=== PATIENT | female | born 1940 | race Caucasian/White ===

== ENCOUNTER 2019-11-06 13:50 | Outpatient (CLI) | payer MEDICARE, SELFPAY ==
--- NOTE | 2019-11-06 14:15 | USCV_ITS ---
Mayela Cavazos Age: 79 Gender: F : 1940 Exam Date: 11/06/2019 14:18 Ordering Phys: Arnaud Gandara MD ([email or web address]) Technologist: Loida Cat Exam Location: [facility] – [place] Indication: CAROTID ARTERY STENOSIS Risk Factors: Previous Vascular Surgery: Right Brachial BP: / Left Brachial BP: / Right Left Velocity (cm/s) Spectral Plaque Velocity (cm/s) Spectral Plaque Syst/Diast Broadening Syst/Diast Broadening 88.20/ 11.00 Prox CCA 126.20/ 17.10 119.10/12.10 Mid CCA 73.00 / 11.70 110.10/11.10 Distal CCA 90.90 / 15.50 80.30/ 11.10 Prox ICA 99.20 / 19.80 91.40/ 17.10 Mid ICA 131.70/ 30.00 106.00/17.90 Distal ICA 130.55/ 11.25 177.10 ECA 138.00 0.89 ICA/CCA 1.99 Antegrade Vertebral Antegrade 69.20/ 8.10 cm/s 49.10/ 9.60 cm/s Bi Subclavian Bi 119.6 145.5 0 0 FINDINGS Comparison:. 06/23/16 Diffuse bilateral scattered calcified plaque through the bifurcations. Minimal elevation of velocity distal left ICA. Bilateral antegrade vertebral arteries. CONCLUSIONS Bilateral ICA stenosis less than 50%. No interval change in stenosis since prior exam. Dr. Karen Vasquez DO (Electronically Signed) Final Date: 06 November 2019 16:17 S
== END 2019-11-06 13:51 | disposition home or self-care (01) ==
PROVIDERS: Family Provider Family Medicine; PCP Family Medicine; Visit Provider Internal Medicine Cardiovascular Disease
DX: I65.23 Occlusion and stenosis of bilateral carotid arteries (principal)
CPT/HCPCS: 93880

== ENCOUNTER 2019-11-12 11:22 | Outpatient (CLI) | payer MEDICARE, SELFPAY ==
--- NOTE | 2019-11-29 12:57 | ONC FU_ITS ---
Dr. Bell Patient Follow-Up Note Patient: Mayela Cavazos Unit #: [id number]: 1940 Dicatated By: Chacho Bell M.D.Date of Visit:Nov 12, 2019 Onc Med Follow-up/Prog Note Chief Complaint: Breast cancer. History of Present Illness: This is an 79 year-old woman with invasive ductal carcinoma of the right breast, stage IA (T1a, N0, M0), ER/ND positive and HER-2/christina unknown. She has previously been treated for intraductal cancer of the right breast. She had completed 5 years of adjuvant tamoxifen. Shortly thereafter her surveillance mammogram had reported suspicious findings in the upper outer quadrant of the right breast. Ultrasound directed biopsy showed invasive ductal carcinoma measuring at least 0.2 cm. The grade was not able to be assessed. 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 On 10/17/2017 she underwent right modified radical mastectomy. Pathology on the mastectomy showed no residual invasive or in situ cancer. There was no involvement in 5 axillary lymph nodes. The breast prognostic profile on the biopsy showed ER positive at 99% and ND positive at 87%. The HER-2/christina expression was indeterminate due to small sample size and distortion of tumor by cautery. She had originally presented in 2011 with an abnormal screening mammogram which showed just a small group of suspicious-appearing calcifications in the right breast. The involved area measured only 4 mm. 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 There also was evidence of lobular carcinoma in situ. There was no invasive cancer. The tumor was ER positive at 97% and ND-positive at 91%. She underwent lumpectomy under needle localization on 06/29/2012. Pathology on the lumpectomy specimen showed focal lobular carcinoma in situ, but no residual ductal carcinoma in situ and no invasive cancer. We had a complete discussion regarding treatment options, and she also did have consultation with the radiation oncologist. She opted to otherwise limit her treatment to adjuvant hormonal therapy with tamoxifen. Her other medical illnesses include hypertension, osteoporosis, and degenerative arthritis. She also has a history of atrial fibrillation. She has had a previous hysterectomy/BSO. She is on anticoagulation with apixaban. She underwent right total knee arthroplasty in 2015. During subsequent followup she was found to have iron deficiency anemia, but it did correct with oral iron supplementation. INTERIM HISTORY: I had seen her for a follow-up visit in November 2017. At that time she agreed to a trial of adjuvant hormonal therapy with anastrozole 1 mg daily. Her DEXA scan in 2016 showed T score -0.7 in the lumbar spine and 0.1 in the left total hip. As of her follow-up visit on 05/08/2018 she had developed significant musculoskeletal pain and other side effects with the anastrozole, including hot flashes and weight gain. As she appeared to have very low risk of recurrence with her breast cancer, I did recommend that she stop treatment. She has since then been followed on observation/expectant management. She is seen for a follow-up visit. She has been feeling good generally. Her main complaint is that she has this muscle thing in her right leg. It is pain that starts in her hip area and also involves her thigh. It tends to be worse when she first gets up, particularly when she has been sitting for a longer period of time. It mostly feels like a muscle cramp or a knot, and at times the pain is pretty severe. She has good energy and activity tolerance. ECOG score is 0. Her appetite is good. She has no fever, night sweats, or hot flashes. She has occasional cough. She does not complain of shortness of breath or chest pain. She reports having a lot of gas, and she says her stomach rolls. She manages constipation with Chayo lax. She has urinary frequency, and she has some urgency and slight incontinence. She had seen Dr. Moralez when it was discovered that there was blood in her urine. Her evaluation with CT and cystoscopy was apparently unrevealing. She does not complain of headache. She has occasional episodes of dizziness/vertigo. She has neuropathy in her feet. Medications: Acetaminophen PM 1 (500-25 mg) Tablet Oral at bedtime PRN, Benadryl Allergy 2 (25 mg) Tablet Oral at bedtime, Cardizem 1 (240 mg) Tablet Oral daily, Eliquis 1 (5 mg) Tablet Oral b.i.d., Lisinopril 1 (10 mg) Tablet Oral b.i.d., Metoprolol Tartrate 1 (100 mg) Tablet Oral b.i.d., MiraLax 1 Pack Oral daily, ZyrTEC Allergy 2 (10 mg) Tablet Oral every am Allergies: Bactrim DS, Demerol, and Tolectin. Review of Systems: Constitutional - Her energy is good. She has normal activity. Appetite is good and weight is stable. No fever, night sweats, or hot flashes. ECOG score is 0, ENMT - No sinus congestion/drainage. No mouth sores. No sore throat or difficulty swallowing, Hematologic/Lymphatic - No abnormal bruising or bleeding, Respiratory - No shortness of breath. She has occasional cough. No pleuritic pain or hemoptysis, Cardiovascular - No angina pain. No palpitations, Gastrointestinal - No nausea or vomiting. No heartburn or acid reflux. She complains that her stomach rolls, and that she has a lot of gas. She manages constipation with Miralax. No blood in the stool or black stools, Genitourinary (F) - No dysuria or hematuria. She has urinary frequency and some urgency. She also has some slight incontinence, Musculoskeletal - She has pain and muscle cramping in her right hip and thigh. It is worse when she first gets up from sitting. She also reports having some stiffness in her neck, Integumentary - She had an itching eruption on her upper body. It has improved significantly. She still occasionally has an outbreak on her neck or in the edge of her hairline, Neurologic - She has headaches at times. She has occasional episodes of dizziness which she manages with meclizine. She has neuropathy in her feet, Psychiatric - She has some anxiety. No depression. She sometimes has difficulty sleeping. Vital Signs: Performed on Nov 12, 2019 12:14 Height - 66.00 in Weight - 167 lbs (HIGH) BSA - 1.85 sq.m BMI - 26.95 Temperature - 97.0 F (LOW) Pulse - 56 /min (LOW) Respiration - 15 /min BP - 150/80 mm(hg) (HIGH) O2 Sat - 94 % (LOW) Pain - 0 Physical Examination: Constitutional - She looks good generally, Eyes - Sclerae nonicteric. Conjunctivae clear, ENMT - No lesions noted in the oral cavity, Hematologic/Lymphatic - No cervical or clavicular adenopathy, Respiratory - Lungs are clear with good air movement bilaterally, Cardiovascular - Heart rhythm is regular. There is no murmur, gallop, or rub noted, Breasts - The right chest wall appears shows no lesions. The left breast shows no mass. There is no axillary adenopathy, Abdomen - Soft. Liver and spleen are not enlarged. There is no abdominal mass or ascites noted and there is no inguinal adenopathy, Extremities - No edema. Dorsalis pedisl pulses are palpable bilaterally, Neurologic - No focal neurologic deficits noted. Lab/Imaging: Test performed on Nov 12, 2019 10:33 Glucose 101 mg/dL BUN 21 mg/dL Creatinine 0.80 mg/dL Cr Clearance (Est) 65.9500 mL/min Sodium 138 mmol/L Potassium 4.2 mmol/L Chloride 100 mmol/L CO2 28 mmol/L Calcium 9.5 mg/dL Protein, Total 7.2 g/dL Albumin 4.4 g/dL Bilirubin, Total 0.3 mg/dL Alkaline Phosphatase 97 IU/L AST (SGOT) 15 IU/L ALT (SGPT) 10 IU/L WBC 6.6 10^9/L RBC 4.44 10^12/L HGB 12.7 g/dL HCT 40.6 % MCV 91.4 fl MCH 28.6 pg MCHC 31.3 g/dL RDW 14.1 % Platelet Count 226 10^9/L MPV 10.9 fL Neutrophils (Gran) 3.97 10^9/L Lymphocytes 1.86 10^9/L Monocytes 0.54 10^9/L Eosinophils 0.22 10^9/L Basophils 0.03 10^9/L Manual Lymphocytes 28 % Manual Monocytes 8 % Manual Eosinophils 3 % Manual Basophils 1 % Impression: 1. Patient with invasive ductal carcinoma of the right breast, stage IA (T1a, N0, M0), ER/ND positive and HER-2/christina unknown. 2. She underwent right modified radical mastectomy on 10/17/2017 with no residual carcinoma identified in the mastectomy specimen. 3. 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 Her treatment was limited to lumpectomy in June 2012 followed by adjuvant hormonal therapy with tamoxifen, which she started in September 2012. Her other medical illnesses include: 3. Hypertension. 4. Osteoporosis 5. Degenerative arthritis. 6. She also has a history of atrial fibrillation, and she is on chronic anticoagulation with apixaban. 7. She developed iron deficiency anemia following revision of the total knee arthroplasty. In November 2017 she began a trial of adjuvant hormonal therapy with anastrozole 1 mg daily. As of her follow-up visit in April 2018 the anastrozole was put on hold due to multiple side effects including joint pain, weight gain, and hot flashes. As the risk for any further recurrence of breast cancer is low, I did not attempt any further treatment. She felt much better after stopping the anastrozole. Recently she has been having pain in her right hip/thigh, which is worse with activity, particularly when she first gets up after sitting. This would appear to be most likely from arthritis in the right hip joint. Overall, though, she is still doing well clinically with no obvious recurrence of the breast cancer. Plan: She remains on observation/expectant management for the breast cancer. She is planning to have her right hip evaluated when she goes in for her scheduled orthopedic follow-up in December. I will see her again in 6 months, or sooner as needed. Signed By: Chacho Bell M.D. <<Signature on File>>
== END 2019-11-12 11:23 | disposition home or self-care (01) ==
LOC: STFRANCIS 11-13 14:26
PROVIDERS: Family Provider Family Medicine; PCP Family Medicine; Visit Provider Internal Medicine Medical Oncology
DX: Z08 Encounter for follow-up examination after completed treatment for malignant neoplasm (principal); Z85.3 Personal history of malignant neoplasm of breast; Z90.11 Acquired absence of right breast and nipple; I10 Essential (primary) hypertension; M81.0 Age-related osteoporosis without current pathological fracture; M19.90 Unspecified osteoarthritis, unspecified site; I48.91 Unspecified atrial fibrillation; Z79.01 Long term (current) use of anticoagulants; Z96.651 Presence of right artificial knee joint; Z92.23 Personal history of estrogen therapy
CPT/HCPCS: G0463

== ENCOUNTER 2020-06-09 10:31 | Outpatient (CLI) | payer MEDICARE, SELFPAY ==
--- NOTE | 2020-06-15 16:10 | ONC FU_ITS ---
Dr. Bell Patient Follow-Up Note Patient: Mayela Cavazos Unit #: [id number]: 1940 Dicatated By: Chacho Bell M.D.Date of Visit:Jun 09, 2020 Onc Med Follow-up/Prog Note Chief Complaint: Breast cancer. History of Present Illness: This is an 80 year-old woman with invasive ductal carcinoma of the right breast, stage IA (T1a, N0, M0), ER/MD positive and HER-2/christina unknown. She has previously been treated for intraductal cancer of the right breast. She had completed 5 years of adjuvant tamoxifen. Shortly thereafter her surveillance mammogram had reported suspicious findings in the upper outer quadrant of the right breast. Ultrasound directed biopsy showed invasive ductal carcinoma measuring at least 0.2 cm. The grade was not able to be assessed. 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 On 10/17/2017 she underwent right modified radical mastectomy. Pathology on the mastectomy showed no residual invasive or in situ cancer. There was no involvement in 5 axillary lymph nodes. The breast prognostic profile on the biopsy showed ER positive at 99% and MD positive at 87%. The HER-2/christina expression was indeterminate due to small sample size and distortion of tumor by cautery. She had originally presented in 2011 with an abnormal screening mammogram which showed just a small group of suspicious-appearing calcifications in the right breast. The involved area measured only 4 mm. 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 There also was evidence of lobular carcinoma in situ. There was no invasive cancer. The tumor was ER positive at 97% and MD-positive at 91%. She underwent lumpectomy under needle localization on 06/29/2012. Pathology on the lumpectomy specimen showed focal lobular carcinoma in situ, but no residual ductal carcinoma in situ and no invasive cancer. We had a complete discussion regarding treatment options, and she also did have consultation with the radiation oncologist. She opted to otherwise limit her treatment to adjuvant hormonal therapy with tamoxifen. Her other medical illnesses include hypertension, osteoporosis, and degenerative arthritis. She also has a history of atrial fibrillation. She has had a previous hysterectomy/BSO. She is on anticoagulation with apixaban. She underwent right total knee arthroplasty in 2015. During subsequent followup she was found to have iron deficiency anemia, but it did correct with oral iron supplementation. INTERIM HISTORY: I had seen her for a follow-up visit in November 2017. At that time she agreed to a trial of adjuvant hormonal therapy with anastrozole 1 mg daily. Her DEXA scan in 2016 showed T score -0.7 in the lumbar spine and 0.1 in the left total hip. As of her follow-up visit on 05/08/2018 she had developed significant musculoskeletal pain and other side effects with the anastrozole, including hot flashes and weight gain. As she appeared to have very low risk of recurrence with her breast cancer, I did recommend that she stop treatment. She has since then been followed on observation/expectant management. She is seen for a follow-up visit. She has been feeling pretty good generally. Her main complaint is that she has been having trouble with her blood pressure and with irregular heart rate, but that eventually leveled out with medication changes. She says it has been good for the past couple of months. She remains on anticoagulation with apixaban. Her energy is not too bad. She has normal activity. ECOG score is 0. She has good appetite. She has not had fever. She still has some hot flashes and sweating. She had sore throat and cough last month, lasting for about 10 days, but that has all resolved now. She does not complain of shortness of breath. She has not been having chest pain. She has no GI/ complaints other than her bowels tend to act up with diarrhea off and on. She still has a little joint pain, especially in her neck, but she says her joints are not too bad now. She does not complain of headache. She has very occasional dizziness. She occasionally has a little bit of numbness/tingling. Medications: Acetaminophen PM 1 (500-25 mg) Tablet Oral at bedtime PRN, Benadryl Allergy 2 (25 mg) Tablet Oral at bedtime, Cardizem 1 (240 mg) Tablet Oral daily, Eliquis 1 (5 mg) Tablet Oral b.i.d., [id number] Ac-Ca Fructo 1 Tablet Oral daily, Losartan Potassium 1 (25 mg) Tablet Oral b.i.d., Magnesium Oxide (400 mg) Capsule Oral daily, Metoprolol Tartrate 1 (100 mg) Tablet Oral b.i.d., MiraLax 1 Pack Oral daily, ZyrTEC Allergy 2 (10 mg) Tablet Oral every am Allergies: Bactrim DS, Demerol, and Tolectin. Review of Systems: Constitutional - Her energy is pretty good. She is able to do light house work. Her appetite is good and weight down a few pounds. No fever, night sweats, or hot flashes. ECOG score is 1, ENMT - She has seasonal allergies. No mouth sores. No sore throat or difficulty swallowing, Hematologic/Lymphatic - No abnormal bruising or bleeding, Respiratory - No shortness of breath. No cough. No pleuritic pain or hemoptysis, Cardiovascular - No angina pain. She was having issues with blood pressure and she was having palpitations associated with her atrial fibrillation, but it has leveled out with adjustments in her medications, Gastrointestinal - No nausea or vomiting. No heartburn or acid reflux. She has been having intermittent episodes of diarrhea. No constipation. No blood in the stool or black stools, Genitourinary (F) - No dysuria or hematuria. No urinary frequency. No urgency or incontinence, Musculoskeletal - She has some stiffness in her joints, especially her neck, Integumentary - No skin complications, Neurologic - No headache. She has occasional episodes dizziness, which she manages with meclizine. She has neuropathy in her feet. No other focal neurologic symptoms, Psychiatric - No anxiety or depression. No insomnia. Vital Signs: Performed on Jun 09, 2020 10:00 Height - 66.00 in Weight - 164.8 lbs (LOW) BSA - 1.84 sq.m BMI - 26.60 Temperature - 97.1 F (LOW) Pulse - 54 /min (LOW) Respiration - 18 /min BP - 142/78 mm(hg) (HIGH) O2 Sat - 99 % Pain - 0 Physical Examination: Constitutional - She looks good generally, Eyes - Sclerae nonicteric. Conjunctivae clear, ENMT - No lesions noted in the oral cavity, Hematologic/Lymphatic - No cervical or clavicular adenopathy, Respiratory - Lungs are clear with good air movement bilaterally, Cardiovascular - Heart rhythm is regular. There is no murmur, gallop, or rub noted, Breasts - There are no lesions noted in the right chest wall. There is no axillary adenopathy, Abdomen - Soft. Liver and spleen are not enlarged. There is no abdominal mass or ascites noted and there is no inguinal adenopathy, Extremities - No edema. Dorsalis pedisl pulses are palpable bilaterally, Neurologic - No focal neurologic deficits noted. Impression: 1. Patient with invasive ductal carcinoma of the right breast, stage IA (T1a, N0, M0), ER/MD positive and HER-2/christina unknown. 2. She underwent right modified radical mastectomy on 10/17/2017 with no residual carcinoma identified in the mastectomy specimen. 3. 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 Her treatment was limited to lumpectomy in June 2012 followed by adjuvant hormonal therapy with tamoxifen, which she started in September 2012. Her other medical illnesses include: 3. Hypertension. 4. Osteoporosis 5. Degenerative arthritis. 6. She also has a history of atrial fibrillation, and she is on chronic anticoagulation with apixaban. 7. She developed iron deficiency anemia following revision of the total knee arthroplasty. In November 2017 she began a trial of adjuvant hormonal therapy with anastrozole 1 mg daily. As of her follow-up visit in April 2018 the anastrozole was put on hold due to multiple side effects including joint pain, weight gain, and hot flashes. She felt much better after stopping the anastrozole. As the risk for any further recurrence of breast cancer was low, I did not attempt any further treatment. During follow-up she has been doing well clinically. Thus far there has been no evidence of recurrence of the breast cancer. Plan: She remains on observation/expectant management for the breast cancer. I will see her again in 6 months. Signed By: Chacho Bell M.D. <<Signature on File>>
== END 2020-06-09 10:32 | disposition home or self-care (01) ==
LOC: ONCMED 10:31
PROVIDERS: PCP Family Medicine; Visit Provider Internal Medicine Medical Oncology
DX: Z08 Encounter for follow-up examination after completed treatment for malignant neoplasm (principal); Z85.3 Personal history of malignant neoplasm of breast; D50.9 Iron deficiency anemia, unspecified; I10 Essential (primary) hypertension; M81.0 Age-related osteoporosis without current pathological fracture; M19.90 Unspecified osteoarthritis, unspecified site; I48.91 Unspecified atrial fibrillation; Z79.01 Long term (current) use of anticoagulants
CPT/HCPCS: 99213; G0463

== ENCOUNTER → 2020-08-24 10:24 | Outpatient (BNVA) | payer MEDICARE, SELFPAY | PROVIDERS: PCP Family Medicine; Visit Provider Urology | DX: R31.29 Other microscopic hematuria (principal); N39.0 Urinary tract infection, site not specified | CPT/HCPCS: 81003 ==

== ENCOUNTER → 2020-12-03 08:53 | Outpatient (BNVA) | payer MEDICARE, SELFPAY | PROVIDERS: PCP Family Medicine; Visit Provider Urology | DX: N39.0 Urinary tract infection, site not specified (principal); R31.29 Other microscopic hematuria | CPT/HCPCS: 81003 ==

== ENCOUNTER → 2021-01-07 16:24 | Outpatient (BNVA) | payer MEDICARE, SELFPAY | PROVIDERS: PCP Family Medicine; Visit Provider Nurse Practitioner Family | DX: N39.0 Urinary tract infection, site not specified (principal) | CPT/HCPCS: 81003; 87086 ==

== ENCOUNTER 2021-02-02 10:58 | Outpatient (CLI) | payer MEDICARE, SELFPAY ==
--- NOTE | 2021-02-02 14:16 | ONC FU_ITS ---
Dr. Bell Patient Follow-Up Note Patient: Mayela Cavazos Unit #: [id number]: 1940 Dicatated By: Chacho Bell M.D.Date of Visit:Feb 02, 2021 Onc Med Follow-up/Prog Note Chief Complaint: Breast cancer. History of Present Illness: This is an 80 year-old woman with invasive ductal carcinoma of the right breast, stage IA (T1a, N0, M0), ER/FL positive and HER-2/christina unknown. She had a prior history of intraductal cancer of the right breast, presenting in 2011 with an abnormal screening mammogram. Fingings included a small group of suspicious-appearing calcifications in the right breast measuring only 4 mm. 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 There also was evidence of lobular carcinoma in situ. There was no invasive cancer. The tumor was ER positive at 97% and FL-positive at 91%. She underwent lumpectomy under needle localization on 06/29/2012. Pathology on the lumpectomy specimen showed focal lobular carcinoma in situ, but no residual ductal carcinoma in situ and no invasive cancer. We had a complete discussion regarding treatment options, and she also had consultation with the radiation oncologist. She opted to otherwise limit her further treatment to adjuvant hormonal therapy with tamoxifen. Shortly after completing the 5 years of tamoxifen her surveillance mammogram had reported suspicious findings in the upper outer quadrant of the right breast. Ultrasound directed biopsy showed invasive ductal carcinoma measuring at least 0.2 cm. The grade was not able to be assessed. 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 On 10/17/2017 she underwent right modified radical mastectomy. Pathology on the mastectomy showed no residual invasive or in situ cancer. There was no involvement in 5 axillary lymph nodes. The breast prognostic profile on the biopsy showed ER positive at 99% and FL positive at 87%. The HER-2/christina expression was indeterminate due to small sample size and distortion of tumor by cautery. I had seen her for a follow-up visit in November 2017. At that time she agreed to a trial of adjuvant hormonal therapy with anastrozole 1 mg daily. Her DEXA scan in 2016 showed T score -0.7 in the lumbar spine and 0.1 in the left total hip. As of her follow-up visit on 05/08/2018 she had developed significant musculoskeletal pain and other side effects with the anastrozole, including hot flashes and weight gain. As she appeared to have very low risk of recurrence with her breast cancer, I did recommend that she stop treatment. She was then followed on observation/expectant management. Her other medical illnesses include hypertension, osteoporosis, and degenerative arthritis. She also has a history of atrial fibrillation. She has had a previous hysterectomy/BSO. She is on anticoagulation with apixaban. She underwent right total knee arthroplasty in 2015. During subsequent followup she was found to have iron deficiency anemia, but it did correct with oral iron supplementation. INTERIM HISTORY: She is seen for a follow-up visit. She has been feeling pretty good generally. Approximately a month ago she was seen in the emergency room for chest pain. Her cardiac evaluation apparently was unrevealing. There was a spot noted on her chest x-ray, and she is now scheduled to have further evaluation with a chest CT. Following that visit her metoprolol dosage was increased, and she has had no further chest pain. She says her energy has been a little low, she has tended to tire more easily. She still has normal activity, though. Her ECOG score is 0. She has good appetite. She has not had fever or night sweats. She has just occasional hot flashes. She does not complain of shortness of breath or cough. She recently had some nausea, lasting just 1 day. Bowel function remains adequate with MiraLAX. She has ongoing problems with her bladder function and recurrent/chronic urinary tract infection. She is seeing Dr. Moralez. She has pain in her knees and legs and she complains her leg muscles are sore. She does not complain of headache. She sometimes has dizziness. She sometimes has numbness/tingling in her feet. Medications: Acetaminophen PM 1 (500-25 mg) Tablet Oral at bedtime PRN, Benadryl Allergy 2 (25 mg) Tablet Oral at bedtime, Cardizem 1 (240 mg) Tablet Oral daily, Eliquis 1 (5 mg) Tablet Oral b.i.d., Zuueot-Hyvgi-Elzk Ac-Ca Fructo 1 Tablet Oral daily, Losartan Potassium 1 (25 mg) Tablet Oral b.i.d., Magnesium Oxide (400 mg) Capsule Oral daily, Metoprolol Tartrate (50 mg) Tablet Oral Take as Directed, MiraLax 1 Pack Oral daily, ZyrTEC Allergy 2 (10 mg) Tablet Oral every am Allergies: Bactrim DS, Demerol, and Tolectin. Vital Signs: Performed on Feb 02, 2021 11:03 Height - 66.00 in Weight - 164 lbs (LOW) BSA - 1.84 sq.m BMI - 26.47 Temperature - 97.8 F (LOW) Pulse - 89 /min Respiration - 17 /min BP - 146/72 mm(hg) (HIGH) O2 Sat - 99 % Pain - 0 Physical Examination: Constitutional - She looks good generally, Eyes - Sclerae nonicteric. Conjunctivae clear, ENMT - No lesions noted in the oral cavity, Hematologic/Lymphatic - No cervical or clavicular adenopathy, Respiratory - Lungs are clear with good air movement bilaterally, Cardiovascular - Heart rhythm is regular. There is no murmur, gallop, or rub noted, Breasts - There are no lesions noted in the right chest wall. There is no axillary adenopathy, Abdomen - Soft. Liver and spleen are not enlarged. There is no abdominal mass or ascites noted and there is no inguinal adenopathy, Extremities - No edema. Dorsalis pedisl pulses are palpable bilaterally, Neurologic - No focal neurologic deficits noted. Problem List: 1. Patient with invasive ductal carcinoma of the right breast, stage IA (T1a, N0, M0), ER/FL positive and HER-2/christina unknown. She underwent right modified radical mastectomy on 10/17/2017 with no residual carcinoma identified in the mastectomy specimen. 2. 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 Her treatment was limited to lumpectomy in June 2012 followed by 5 years of adjuvant hormonal therapy with tamoxifen, which she had started in September 2012. 3. Hypertension. 4. Osteoporosis 5. Degenerative arthritis. 6. She also has a history of atrial fibrillation, for which she has been on chronic anticoagulation with apixaban. 7. She developed iron deficiency anemia following revision of the total knee arthroplasty. Problems Addressed with this Encounter and Plan: 1. Patient with invasive ductal carcinoma of the right breast, stage IA (T1a, N0, M0), ER/FL positive and HER-2/christina unknown. She underwent right modified radical mastectomy on 10/17/2017 with no residual carcinoma identified in the mastectomy specimen. In November 2017 she began a trial of adjuvant hormonal therapy with anastrozole 1 mg daily. As of her follow-up visit in April 2018 the anastrozole was put on hold due to multiple side effects including joint pain, weight gain, and hot flashes. She felt much better after stopping the anastrozole. As the risk for any further recurrence of breast cancer was low, I did not attempt any further treatment. During follow-up she has been doing well clinically. Thus far there has been no evidence of recurrence of the breast cancer. She remains on expectant management. I will see her again in 6 months. Her surveillance mammogram will be due again in August, and I will go ahead and get that scheduled. 2. She recently was noted to have abnormal chest x-ray. She is scheduled to have a chest CT. She will have further evaluation as indicated. Signed By: Chacho Bell M.D. <<Signature on File>>
== END 2021-02-02 10:59 | disposition home or self-care (01) ==
LOC: ONCMED 10:59
PROVIDERS: PCP Family Medicine; Visit Provider Internal Medicine Medical Oncology
DX: C50.811 Malignant neoplasm of overlapping sites of right female breast (principal); Z17.0 Estrogen receptor positive status [ER+]; Z90.11 Acquired absence of right breast and nipple; I10 Essential (primary) hypertension; M81.0 Age-related osteoporosis without current pathological fracture; I48.20 Chronic atrial fibrillation, unspecified; Z79.01 Long term (current) use of anticoagulants; D50.9 Iron deficiency anemia, unspecified; Z79.899 Other long term (current) drug therapy; Z79.811 Long term (current) use of aromatase inhibitors
CPT/HCPCS: 99214

== ENCOUNTER → 2021-02-08 13:42 | Outpatient (BNVA) | payer MEDICARE, SELFPAY | PROVIDERS: PCP Family Medicine; Visit Provider Nurse Practitioner Family | DX: N39.0 Urinary tract infection, site not specified (principal); R39.9 Unspecified symptoms and signs involving the genitourinary system | CPT/HCPCS: 81003 ==

== ENCOUNTER → 2021-04-28 09:09 | Outpatient (BNVA) | payer MEDICARE, SELFPAY | PROVIDERS: PCP Family Medicine; Visit Provider Urology | DX: N39.0 Urinary tract infection, site not specified (principal); R10.2 Pelvic and perineal pain | CPT/HCPCS: 81003 ==

== ENCOUNTER 2021-05-18 11:58 | Outpatient (CLI) | payer MEDICARE, SELFPAY ==
--- NOTE | 2021-05-18 12:15 | US_ITS ---
WS: [id number] ULTRASOUND PELVIS TECHNIQUE: Transabdominal. CLINICAL INFORMATION: PELVIC PRESSURE LMP: : No. COMPARISON: None. FINDINGS: History of partial hysterectomy. No evidence of cystic or solid pelvic mass or lesion. Adnexa: Normal adnexa. Ovaries not visualized. Free fluid: None. Other findings: None. US/US pelvic complete* [id number] IMPRESSION: 1. History of partial hysterectomy. 2. Ovaries not visualized. No adnexal masses. 3. No free fluid in the cul-de-sac. 4. No acute findings.
== END 2021-05-18 11:59 | disposition home or self-care (01) ==
LOC: US 12:00
PROVIDERS: PCP Family Medicine; Visit Provider Urology
DX: R10.2 Pelvic and perineal pain (principal); Z90.710 Acquired absence of both cervix and uterus
CPT/HCPCS: 76856; 81003

== ENCOUNTER → 2021-08-24 10:08 | Outpatient (BNVA) | payer MEDICARE, SELFPAY | PROVIDERS: PCP Family Medicine; Visit Provider Urology | DX: R39.15 Urgency of urination (principal) | CPT/HCPCS: 81003 ==

== ENCOUNTER 2021-09-13 15:26 | Outpatient (CLI) | payer MEDICARE, SELFPAY ==
--- NOTE | 2021-09-17 10:06 | ONC FU_ITS ---
Dr. Bell Patient Follow-Up Note Patient: Mayela Cavazos Unit #: [id number]: 1940 Dicatated By: Chacho Bell M.D.Date of Visit:Sep 13, 2021 Onc Med Follow-up/Prog Note Chief Complaint: Breast cancer. History of Present Illness: This is an 80 year-old woman with invasive ductal carcinoma of the right breast, stage IA (T1a, N0, M0), ER/ND positive and HER-2/christina unknown. She had a prior history of intraductal cancer of the right breast, presenting in 2011 with an abnormal screening mammogram. Fingings included a small group of suspicious-appearing calcifications in the right breast measuring only 4 mm. 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 There also was evidence of lobular carcinoma in situ. There was no invasive cancer. The tumor was ER positive at 97% and ND-positive at 91%. She underwent lumpectomy under needle localization on 06/29/2012. Pathology on the lumpectomy specimen showed focal lobular carcinoma in situ, but no residual ductal carcinoma in situ and no invasive cancer. We had a complete discussion regarding treatment options, and she also had consultation with the radiation oncologist. She opted to otherwise limit her further treatment to adjuvant hormonal therapy with tamoxifen. Shortly after completing the 5 years of tamoxifen her surveillance mammogram had reported suspicious findings in the upper outer quadrant of the right breast. Ultrasound directed biopsy showed invasive ductal carcinoma measuring at least 0.2 cm. The grade was not able to be assessed. 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 On 10/17/2017 she underwent right modified radical mastectomy. Pathology on the mastectomy showed no residual invasive or in situ cancer. There was no involvement in 5 axillary lymph nodes. The breast prognostic profile on the biopsy showed ER positive at 99% and ND positive at 87%. The HER-2/christina expression was indeterminate due to small sample size and distortion of tumor by cautery. I had seen her for a follow-up visit in November 2017. At that time she agreed to a trial of adjuvant hormonal therapy with anastrozole 1 mg daily. Her DEXA scan in 2016 showed T score -0.7 in the lumbar spine and 0.1 in the left total hip. As of her follow-up visit on 05/08/2018 she had developed significant musculoskeletal pain and other side effects with the anastrozole, including hot flashes and weight gain. As she appeared to have very low risk of recurrence with her breast cancer, I did recommend that she stop treatment. She was then followed on observation/expectant management. Her other medical illnesses include hypertension, osteoporosis, and degenerative arthritis. She also has a history of atrial fibrillation. She has had a previous hysterectomy/BSO. She is on anticoagulation with apixaban. She underwent right total knee arthroplasty in 2015. During subsequent followup she was found to have iron deficiency anemia, but it did correct with oral iron supplementation. INTERIM HISTORY: She is seen for a scheduled visit. She says she has been feeling okay, she has been having a lot of leg problems, most significantly pain in the right thigh area. It bothers her mostly when she first stands up, and it is significant enough that she has to wait a short time before she starts walking. She also says she has been found to have lung nodules on CT scan, that is being followed by Dr. Ivan. Her energy has been okay, and she says she does work a lot. ECOG score is 0. She has good appetite. She has not had fever or night sweats. She does have hot flashes, not as bad. She occasionally has a little cough. Her breathing is pretty good. She has not had chest pain. She does have atrial fibrillation. She has no GI complaints other than constipation, which she manages with MiraLAX. She has been having lots of trouble with her bladder, and she has been seeing Dr. Moralez. She also has pain in both feet. She does not complain of headache. She occasionally has dizziness. She has no focal neurologic symptoms. Medications: Acetaminophen PM 1 (500-25 mg) Tablet Oral at bedtime PRN, Benadryl Allergy 2 (25 mg) Tablet Oral at bedtime, Cardizem 1 (240 mg) Tablet Oral daily, Eliquis 1 (5 mg) Tablet Oral b.i.d., Tzwxud-Dbayb-Qkbr Ac-Ca Fructo 1 Tablet Oral daily, Losartan Potassium 1 (25 mg) Tablet Oral b.i.d., Magnesium Oxide (400 mg) Capsule Oral daily, Metoprolol Tartrate (50 mg) Tablet Oral Take as Directed, MiraLax 1 Pack Oral daily, ZyrTEC Allergy 2 (10 mg) Tablet Oral every am PRN Allergies: Bactrim DS, Demerol, and Tolectin. Vital Signs: Performed on Sep 13, 2021 16:05 Height - 66.00 in Weight - 159.8 lbs (LOW) BSA - 1.82 sq.m BMI - 25.79 Temperature - 98.1 F (LOW) Pulse - 61 /min Respiration - 18 /min BP - 175/73 mm(hg) (HIGH) O2 Sat - 99 % Pain - 6 Fatigue - 0 Physical Examination: Constitutional - She looks good generally, Eyes - Sclerae nonicteric. Conjunctivae clear, ENMT - No lesions noted in the oral cavity, Hematologic/Lymphatic - No cervical, clavicular, or axillary adenopathy, Respiratory - Lungs are clear with good air movement bilaterally, Cardiovascular - Heart rhythm is regular. There is no murmur, gallop, or rub noted, Abdomen - Soft. Liver and spleen are not enlarged. There is no abdominal mass or ascites noted and there is no inguinal adenopathy, Extremities - No edema. Dorsalis pedisl pulses are palpable bilaterally, Neurologic - No focal neurologic deficits noted. Problem List: 1. Patient with invasive ductal carcinoma of the right breast, stage IA (T1a, N0, M0), ER/ND positive and HER-2/christina unknown. She underwent right modified radical mastectomy on 10/17/2017 with no residual carcinoma identified in the mastectomy specimen. 2. 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 Her treatment was limited to lumpectomy in June 2012 followed by 5 years of adjuvant hormonal therapy with tamoxifen, which she had started in September 2012. 3. Hypertension. 4. Osteoporosis 5. Degenerative arthritis. 6. She also has a history of atrial fibrillation, for which she has been on chronic anticoagulation with apixaban. 7. She developed iron deficiency anemia following revision of the total knee arthroplasty. Problems Addressed with this Encounter and Plan: 1. Patient with invasive ductal carcinoma of the right breast, stage IA (T1a, N0, M0), ER/ND positive and HER-2/christina unknown. She underwent right modified radical mastectomy on 10/17/2017 with no residual carcinoma identified in the mastectomy specimen. In November 2017 she began a trial of adjuvant hormonal therapy with anastrozole 1 mg daily. As of her follow-up visit in April 2018 the anastrozole was put on hold due to multiple side effects including joint pain, weight gain, and hot flashes. She felt much better after stopping the anastrozole. As the risk for any further recurrence of breast cancer was low, I did not attempt any further treatment. During follow-up she has been doing pretty well clinically. She has been having pain in the right thigh area, likely associated with her previous surgery. There has been no evidence, though, of recurrence of her breast cancer. She remains on expectant management. She will be scheduled for a follow-up visit in 1 year. 2. She was found to have pulmonary nodules by chest CT scan, that is being followed by Dr. Ivan. Signed By: Chacho Bell M.D. <<Signature on File>>
== END 2021-09-13 15:27 | disposition home or self-care (01) ==
LOC: ONCMED 15:34
PROVIDERS: PCP Family Medicine; Visit Provider Internal Medicine Medical Oncology
DX: Z08 Encounter for follow-up examination after completed treatment for malignant neoplasm (principal); Z85.3 Personal history of malignant neoplasm of breast; Z90.11 Acquired absence of right breast and nipple; I10 Essential (primary) hypertension; M81.0 Age-related osteoporosis without current pathological fracture; M19.90 Unspecified osteoarthritis, unspecified site; I48.20 Chronic atrial fibrillation, unspecified; Z79.01 Long term (current) use of anticoagulants; D50.9 Iron deficiency anemia, unspecified; Z79.899 Other long term (current) drug therapy
CPT/HCPCS: G0463

== ENCOUNTER 2021-12-23 10:50 | Outpatient (CLI) | payer MEDICARE, SELFPAY ==
--- NOTE | 2021-12-23 11:00 | USCV_ITS ---
Mayela Cavazos Age: 81 Gender: F : 1940 Exam Date: 12/23/2021 10:57 Ordering Phys: Arnaud Gandara MD ([email or web address]) Technologist: [place] [facility] [place]: cca disease Risk Factors: Previous Vascular Surgery: Right Brachial BP: / Left Brachial BP: / Right Left Velocity (cm/s) Spectral Plaque Velocity (cm/s) Spectral Plaque Syst/Diast Broadening Syst/Diast Broadening 97.00/ 9.90 Prox CCA 103.60/ 16.50 120.20/15.40 Mid CCA 109.20/ 23.20 87.10/ 11.00 Hetro Distal CCA 94.80 / 13.20 Hetro 67.30/ 9.90 Braxton Prox ICA 75.20 / 17.10 Hetro 81.60/ 17.60 Mid ICA 64.10 / 15.40 90.40/ 19.80 Distal ICA 62.40 / 13.70 139.80 ECA 105.60 0.75 ICA/CCA 0.69 Antegrade Vertebral Antegrade 48.50/ 11.00 cm/s 61.50/ 12.80 cm/s Tri Subclavian Tri 105.8 55.50 0 CONCLUSIONS Right ICA stenosis <50%. Moderate atheromatous plaque right carotid bulb/ICA. Left ICA stenosis <50%. Moderate atheromatous plaque left carotid bulb/ICA. Normal antegrade Doppler flow noted in the right vertebral artery. Normal antegrade Doppler flow noted in the left vertebral artery. Edouard Núñez MD (Electronically Signed) Final Date: 23 December 2021 15:59 S
== END 2021-12-23 10:51 | disposition home or self-care (01) ==
LOC: RAD 10:51
PROVIDERS: PCP Family Medicine; Visit Provider Internal Medicine Cardiovascular Disease
DX: I65.23 Occlusion and stenosis of bilateral carotid arteries (principal); R39.15 Urgency of urination
CPT/HCPCS: 81003; 88112; 93880

== ENCOUNTER → 2021-12-29 10:22 | Outpatient (BNVA) | payer MEDICARE, SELFPAY | PROVIDERS: PCP Family Medicine; Visit Provider Nurse Practitioner Family | DX: N39.0 Urinary tract infection, site not specified (principal); R39.89 Other symptoms and signs involving the genitourinary system | CPT/HCPCS: 81003 ==

== ENCOUNTER 2022-01-05 11:32 | Outpatient (CLI) | payer MEDICARE, SELFPAY ==
--- NOTE | 2022-01-05 11:43 | MM_ITS ---
WS: [id number] LEFT 3D TOMOSYNTHESIS DIGITAL MAMMOGRAPHY WITH CAD CLINICAL INFORMATION: HX OF BREAST CA;RT MASTECTOMY COMPARISON: September 16, 2020 TECHNIQUE: 3 views of the left breast were obtained. FINDINGS: Scattered fibroglandular densities of the left breast. Vascular calcification. A few incidental punct ate calcifications. No suspicious focal mass, asymmetry, calcifications, or architectural distortion. No evidence of olvin gnancy. MM/[place] [id number] IMPRESSION: BI-RADS: 2-Benign FOLLOW UP: 1 Year Follow-up Recommend return to annual diagnostic mammography.
== END 2022-01-05 11:33 | disposition home or self-care (01) ==
PROVIDERS: PCP Family Medicine; Visit Provider Internal Medicine Medical Oncology
DX: Z85.3 Personal history of malignant neoplasm of breast (principal)
CPT/HCPCS: 77061; 81003

== ENCOUNTER → 2022-05-02 08:05 | Outpatient (BNVA) | payer MEDICARE, SELFPAY | PROVIDERS: PCP Family Medicine; Visit Provider Nurse Practitioner Family | DX: N39.0 Urinary tract infection, site not specified (principal); R39.89 Other symptoms and signs involving the genitourinary system | CPT/HCPCS: 51700; 81003; 87086; 99213; J0690; J1644; J1720; J3490 ==

== ENCOUNTER → 2022-05-23 08:26 | Outpatient (BNVA) | payer MEDICARE, SELFPAY | PROVIDERS: PCP Family Medicine; Visit Provider Nurse Practitioner Family | DX: N39.0 Urinary tract infection, site not specified (principal) | CPT/HCPCS: 51700; 81003; J0690; J1644; J1720; J3490 ==

== ENCOUNTER → 2022-06-13 08:42 | Outpatient (BNVA) | payer MEDICARE, SELFPAY | PROVIDERS: PCP Family Medicine; Visit Provider Nurse Practitioner Family | DX: R39.89 Other symptoms and signs involving the genitourinary system (principal); R39.15 Urgency of urination; N39.0 Urinary tract infection, site not specified | CPT/HCPCS: 51700; 81003; 99212; J0690; J1644; J1720; J3490 ==

== ENCOUNTER → 2022-07-07 14:10 | Outpatient (BNVA) | payer MEDICARE, SELFPAY | PROVIDERS: PCP Family Medicine; Visit Provider Urology | DX: R39.89 Other symptoms and signs involving the genitourinary system (principal); R31.29 Other microscopic hematuria | CPT/HCPCS: 99214 ==

== ENCOUNTER 2022-08-01 05:52 | Day surgery (SDC) | payer MEDICARE, SELFPAY ==
--- NOTE | 2022-07-29 13:19 | ECG_ITS ---
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 Measurements Intervals [place] Rate: 66 P: 78 LA: 149 QRS: 72 QRSD: 109 T: 69 QT: 443 QTc: 464 Interpretive Statements SINUS RHYTHM POSSIBLE LEFT ATRIAL ENLARGEMENT [-0.1mV P-WAVE IN V1/V2] INCOMPLETE RIGHT BUNDLE BRANCH BLOCK [90+ ms QRS DURATION, TERMINAL R IN V1/V2, 40+ ms S IN I/aVL/V4/V5/V6] Compared to ECG 06/23/2019 00:17:49 No significant changes Electronically Signed On 07-29-2022 14:48:50 CDT by Mario Abdullahi M.D. [id number]
[2022-07-29 13:24] VITALS: BMI 25.0
--- NOTE | 2022-07-29 13:54 | PC.NURSE ---
I CONSULTED DR. POTTS REGARDING WITHHOLDING ELIQUIS BEFORE SURGERY. PT IS TO HOLD ELIQUIS FOR ONE DAY ONLY BEFORE SURGERY.
--- NOTE | 2022-07-29 14:15 | ANES.PREANE2 ---
Pre-Anesthetic Assessment Height/Weight: Height 1.69 m Weight 71.214 kg Preop Diagnosis: Interstitial cystitis Operation Date: 08/01/22 07:00 Proposed Procedures p CYSTOSCOPY HYDRODISTENTION FULGURATION 03803 30856,R39.89,N39.0(Not Applicable) - Gordon Moralez MD s Bladder Hydrodistention(Not Applicable) - Gordon Moralez MD Familial anesthetic complications: none Was Beta Sonali taken within 24 hours: Yes Was Clonidine taken within 24 hours: N/A Exam alert, oriented x 3, clear to auscultation bilaterally and regular rate & rhythm Airway Submandibular: within normal limits Cervical ROM: within normal limits Mallampati: Class I Dentition: false Pulmonary Denies COPD, ILANA, asthma, SOB CV/HEM Atrial Fibrillation, Hypertension and Peripheral Vascular Disease (Carotid stenosis ) METS = 4 Denies [place], CAD, CA stents Hx of rheumatic fever Carotid Doppler CONCLUSIONS ?Right ICA stenosis <50%. Moderate atheromatous plaque right ?carotid bulb/ICA. ?Left ICA stenosis <50%. Moderate atheromatous plaque left ?carotid bulb/ICA. ?Normal antegrade Doppler flow noted in the right vertebral ?artery. ?Normal antegrade Doppler flow noted in the left vertebral ?artery. Chronic Renal Insufficiency (Elevated creatinine on 07/29/22) Recurrent UTI Bladder pain Urinary urgency Hepatic None reported GI Gastroesophageal Reflux Disease (Well controlled ) Metabolic Hyperlipidemia Denies DM Musc/skel Osteoarthritis/DJD Neuropsych Neuropathy Denies stroke or siezure Anesthetic Plan ASA status: 3 Anesthesia: Anesthesia Evaluation and General Other: We discussed risk and benefits of general anesthesia including PONV, sore throat (sometimes severe), corneal abrasion, positioning and peripheral nerve injuries, life threatening allergic reaction, post operative ICU admission requiring prolonged intubation, aspiration, stroke, heart attack, , and rare incidences of recall. Patient consents to proceed with general anesthesia. Medications reviewed patient will hold apixaban starting Monday per Doctor Ruelas. Risk of > 500 ml blood loss (7ml/kg in children): No Medications/Allergies Home Medications Medication Instructions Recorded Confirmed Last Taken Type glucosam 750 mg-chondroi 100 1 tab PO DAILY 30 days #30 tabs 01/20/20 07/29/22 Unknown Rx mg-hyalur 1.65 mg-CF borate 108 mg tablet ([facility] [place] [address]) cholecalciferol (vitamin D3) 10 See Rx Instructions .Route .COMPLEX 04/20/21 07/29/22 Unknown History mcg (400 unit) capsule apixaban 5 mg tablet (Eliquis) 5 mg PO BID #180 tabs 11/18/21 07/29/22 Unknown Rx diltiazem HCl 240 mg 240 mg PO DAILY #90 caps 11/18/21 07/29/22 Unknown Rx capsule,extended release 24 hr losartan 50 mg tablet 150 mg PO DIRECTED #270 tabs 11/18/21 07/29/22 Unknown Rx magnesium oxide 400 mg PO DAILY #90 caps 11/18/21 07/29/22 Unknown Rx polyethylene glycol 3350 17 17 g PO DAILY 11/18/21 07/29/22 Unknown History gram/dose oral powder (Miralax) metoprolol tartrate 50 mg tablet 175 mg PO DIRECTED #315 tabs 11/19/21 07/29/22 Unknown Rx ciprofloxacin HCl 500 mg tablet 500 mg PO BID #28 tabs 05/02/22 07/07/22 Unknown Rx Allergies Allergy/AdvReac Type Severity Reaction Status Date / Time Sulfa (Sulfonamide Allergy Mild Rash/Hives Verified 07/29/22 13:21 Antibiotics) meperidine Allergy Unknown Unknown Verified 07/29/22 13:21 tolmetin Allergy Unknown Unknown Verified 07/29/22 13:21 blue dye Allergy HIVES Verified 07/29/22 13:21 [facility] Anesthesia Medical History Atrial fibrillation Carotid artery stenosis History of breast cancer History of skin cancer HTN (hypertension) Lower urinary tract symptoms (LUTS) Microscopic hematuria Recurrent UTI Rheumatic heart disease Varicose veins of bilateral lower extremities with other complications Surgical History S/P appendectomy S/P cholecystectomy S/P hysterectomy S/P mastectomy S/P total knee replacement Family History Mother , at age 101 Cancer Hypertension Father , at age 85 CAD (coronary artery disease) Diabetes Hypertension Brother Diabetes Social History Smoking and tobacco status: never smoked Alcohol intake: never Household members: spouse Marital status: Current occupational status: retired History of recent travel: No Data Anesthesia : 07/29/22 14:10 07/29/22 14:10 Cardiac Studies: No Data to Display
[2022-07-29 14:30] LABS: Basophils % 0.3 %; Eosinophils # 0.4 10^3/uL (0.0-0.8); Eosinophils % 5.8 %; Hematocrit 37.7 % (37.0-47.0); Hemoglobin 11.9 g/dL (11.5-15.3); Lymphocytes # 1.8 10^3/uL (0.8-4.8); Lymphocytes % 28.8 %; Mean Corpuscular HGB Conc 31.6 g/dL (30.0-36.0); Mean Corpuscular Hemoglobin 29.2 pg (28.0-34.0); Mean Corpuscular Volume 92.6 fl (81-99); Mean Platelet Volume 11.6 fL (7.4-10.4); Monocytes # 0.6 10^3/uL (0.2-0.9); Monocytes % 9.6 %; Neutrophils # 3.36 10^3/uL (1.8-7.7); Neutrophils % 55.3 %; Nucleated Red Blood Cells % 0 %; Platelet Count 211 10^3/cmm (130-400); Red Blood Count 4.07 10^6/uL (4.1-5.3); Red Cell Distribution Width 13.8 % (12.1-15.1); White Blood Count 6.1 10^3/uL (4.0-10.0)
[2022-07-29 14:43] LABS: Alanine Aminotransferase 10 U/L (0-33); Albumin Level 4.1 g/dL (3.5-5.2); Alkaline Phosphatase 111 U/L (35-105); Anion Gap 13.3 (5-19); Aspartate Amino Transferase 15 U/L (0-32); Blood Urea Nitrogen 24 mg/dL (8-23); Calcium 9.3 mg/dL (8.5-10.5); Carbon Dioxide 29 mmol/L (22-29); Chloride 103 mmol/L (98-107); Glucose 99 mg/dL (65-115); Osmolality Calculated 296 mOsm/kg (285-295); Potassium 4.3 mmol/L (3.5-5.1); Sodium 141 mmol/L (136-145); Total Bilirubin 0.2 mg/dL (0.15-1.2); Total Protein 7.1 g/dL (6.6-8.7)
[2022-08-01] VITALS (9 sets, daily range): BP systolic 139–185; BP diastolic 58–78; PULSE 60–72; RESP 12–20; TEMP 36.1–37.1; O2SAT 96–100
[2022-08-01] MEDS: sodium chloride 0.9% 1,000 ML 30 ML IV (06:26)
--- NOTE | 2022-08-01 06:31 | P.ANESUD_ITS ---
Pre-Anesthetic Update Pre-Anesthetic Assessment: Date of Surgery/Procedure: 08/01/22 Preop Bibi gnosis: Interstitial cystitis Proposed Procedure: Operation Date: 08/01/22 07:00 Proposed Procedures p CYSTOSCOPY HYDRODISTENTION FULGURATION 67632 [id number],R39.89,N39.0(Not Applicable) - Gordon Moralez MD s Bladder Hydrodistention(Not Applicable) - Gordon Moralez MD Any changes to Pre-Anesthetic Assessment?: No Last Intake: Intake Last Liquid Date 07/31/22 Last Liquid Time 20:00 Last Solid Date 07/31/22 Last Solid Time 20:00 Vitals: Temperature 98.8 F 08/01/22 06:16 Temperature Source Temporal Artery S can 08/01/22 06:16 Pulse Rate 64 08/01/22 06:16 Pulse Rhythm 08/01/22 06:16 Pulse Strength 3+ Normal 08/01/22 06:16 Respiratory Rate 18 08/01/22 06:16 Blood Pressure 155/73 08/01/22 06:16 Blood Pressure Kendra n 100 08/01/22 06:16 Pulse Oximetry 99 08/01/22 06:16 Oxygen Delivery Me thod 08/01/22 06:16 Exam: Pre-Anes Outpt Exam: alert, oriented x 3, clear to auscultation bilaterally and regular rate & rhythm Cardiac Studies: No Data to Display
--- NOTE | 2022-08-01 07:07 | W.PM.OPSUD ---
Surgery/Procedure H&P Update DATE OF PROCEDURE: August 01, 2022 DATE H&P PERFORMED: 07/06/22 H&P UPDATE INFORMATION: I have reviewed H&P completed within last 30 days, I have examined patient prior to procedure and Changes to prior documentation as noted here CHANGES TO PREVIOUS DOCUMENTATION: Last dose of Eliquis was 08/20/2022 Reviewed again expectations PREOP DIAGNOSIS: Interstitial cystitis PLANNED PROCEDURE: Operation Date: 08/01/22 07:00 Proposed Procedures p CYSTOSCOPY HYDRODISTENTION FULGURATION 13328 13135,R39.89,N39.0(Not Applicable) - Gordon Moralez MD s Bladder Hydrodistention(Not Applicable) - Gordon Moralez MD
--- NOTE | 2022-08-01 07:12 | PM.OP ---
Operative Report Date of procedure: August 01, 2022 Pre-op diagnosis: Interstitial cystitis Post-op diagnosis: Interstitial cystitis Procedure done: 1. Hydrodistention of the bladder 2. Postop bladder instillation Implants: None Specimens removed/disposition: None Surgeon: Kirt Estimated blood loss: Minimal Urine output: Not measured Complications: None Findings: Anesthesia: General Condition: Stable Disposition: Intraoperative findings: Anesthetic capacity #1 and 2: Approximately 400 cc with both distentions. Several inflamed areas on initial scope which were hemorrhagic post distention. Fulgurated each individually with complete hemostasis obtained. Nothing near the orifices or trigone. Some minor tearing of the mucosa on one of the more pronounced sites on the left posterolateral aspect of the bladder. Nothing more pronounced than mucosal involvement Brief History: Mrs. Cavazos is a very pleasant 82-year-old white female with presumptive diagnosis of interstitial cystitis. Has failed prolonged course of antibiotics for initial impression of chronic cystitis. Minimal improvement with bladder instillation therapy. Some mild nonspecific bladder inflammatory changes on previous cystoscopy. Admitted now for hydrodistention of the bladder possible fulguration Procedure: After routine preoperative evaluation examination and obtaining of informed consent she was taken to the operating suite on 08/01/2022 where general anesthesia was administered without difficulty after appropriate timeout was performed, SCDs confirmed to be functioning, preoperative antibiotics administered, beta-dave protocol confirmed. Prepped and draped in usual sterile fashion in dorsolithotomy position paying careful attention to voiding pressure points. 21 [place] cystoscope with 30 degree lens was introduced into urethra meatus and advanced into the bladder without difficulty. The bladder was systematically examined with both 30 and 70 degree lenses. Approximately 3 or 4 areas of inflammatory changes suspicious for Hunner's ulcers. The bladder was drained and then hydrodistended at 50 cm of water pressure for total of about 5 minutes. Bladder was then drained and the hydrodistention was repeated. Initial anesthetic capacity at 50 cm H2O pressure: Approximately 400 Second anesthetic capacity of 50 cm of water pressure: Approximately 400 cc Bladder wall post hydrodistention: Each of the inflammatory sites were hemorrhagic and oozing post hydrodistention. These were fulgurated with the Bugbee cautery probe to complete hemostasis. No significant bleeding. On final inspection the bladder was confirmed to be hemostatic. Orifices were not involved. Bladder instillation with heparin triamcinolone, bupivacaine, lidocaine instilled and left indwelling at the completion of the procedure. She tolerated procedure well without complications and was awakened in the operating room and returned to PACU in stable condition. PLANS: 1. Anticipate discharge from outpatient surgery 2. Follow-up in approximately 2 to 3 weeks for postop check. Stable instillation.
[2022-08-01] MEDS: levofloxacin-dextrose 5 % 500 MG/100 ML PREMIX 100 MG IV (07:30)
[2022-08-01] MEDS: heparin, porcine 1,000 unit/mL INJ 10 mL 10000 UNIT INJECTION (07:42)
[2022-08-01] MEDS: lidocaine 1% INJ 20 mL 30 ML XX (07:42)
[2022-08-01] MEDS: triamcinolone 40 mg/mL SDV INJECTION (07:42)
--- NOTE | 2022-08-01 13:22 | ANE.PACU2 ---
Inpatient post-anesthesia follow up: Airway intact: Yes Vital signs: Temperature 97.0 F Pulse Rate 60 Respiratory Rate 18 Blood Pressure 155/70 Pulse Oximetry 99 Oxygen Delivery Me thod Room Air Oxygen Flow Rate 6 Fraction of Inspir ed Oxygen Hydration adequate: Yes Nausea and vomiting: No Pain level: 1 Mental status: Baseline
== END 2022-08-01 09:32 | disposition home or self-care (01) ==
PROVIDERS: PCP Family Medicine; Visit Provider Urology
PROC: 0TJB8ZZ Inspection of Bladder, Via Natural or Artificial Opening Endoscopic (ICD-10-PCS; CPT 52000; principal; 2022-08-01 07:00)
PROC: 0T7B7ZZ Dilation of Bladder, Via Natural or Artificial Opening (ICD-10-PCS; CPT 52214; 2022-08-01 07:00)
DX: N30.10 Interstitial cystitis (chronic) without hematuria (principal); I48.91 Unspecified atrial fibrillation; I10 Essential (primary) hypertension; I65.23 Occlusion and stenosis of bilateral carotid arteries; K21.9 Gastro-esophageal reflux disease without esophagitis; E78.5 Hyperlipidemia, unspecified; M19.90 Unspecified osteoarthritis, unspecified site; I25.10 Atherosclerotic heart disease of native coronary artery without angina pectoris; Z85.3 Personal history of malignant neoplasm of breast; Z85.828 Personal history of other malignant neoplasm of skin
CPT/HCPCS: 52214; 52260; 36415; 80053; 85025; 93005; J1644; J1956; J2704; J3010; J3301; J3490; J7030

== ENCOUNTER → 2022-08-15 11:05 | Outpatient (BNVA) | payer MEDICARE, SELFPAY | PROVIDERS: PCP Family Medicine; Visit Provider Internal Medicine Cardiovascular Disease | DX: Z01.810 Encounter for preprocedural cardiovascular examination (principal); I48.19 Other persistent atrial fibrillation; Z79.01 Long term (current) use of anticoagulants; I10 Essential (primary) hypertension; R00.1 Bradycardia, unspecified | CPT/HCPCS: 99214 ==

== ENCOUNTER → 2022-08-19 09:04 | Outpatient (BNVA) | payer MEDICARE, SELFPAY | PROVIDERS: PCP Family Medicine; Visit Provider Urology | DX: N30.10 Interstitial cystitis (chronic) without hematuria (principal) | CPT/HCPCS: 81003; 99213 ==

== ENCOUNTER 2022-09-13 11:57 | Oncology outpatient (recurring) (ONCR) | payer MEDICARE, SELFPAY ==
[2022-09-13 13:48] LABS: Basophils % 0.3 %; Eosinophils # 0.2 10^3/uL (0.0-0.8); Eosinophils % 2.7 %; Hematocrit 39.1 % (37.0-47.0); Hemoglobin 12.2 g/dL (11.5-15.3); Lymphocytes # 2.1 10^3/uL (0.8-4.8); Lymphocytes % 29.7 %; Mean Corpuscular HGB Conc 31.2 g/dL (30.0-36.0); Mean Corpuscular Hemoglobin 28.6 pg (28.0-34.0); Mean Corpuscular Volume 91.8 fl (81-99); Monocytes # 0.6 10^3/uL (0.2-0.9); Monocytes % 8.1 %; Neutrophils # 4.13 10^3/uL (1.8-7.7); Neutrophils % 59.1 %; Nucleated Red Blood Cells % 0 %; Platelet Count 216 10^3/cmm (130-400); Red Blood Count 4.26 10^6/uL (4.1-5.3); Red Cell Distribution Width 13.6 % (12.1-15.1)
[2022-09-13 14:27] LABS: Alanine Aminotransferase 10 U/L (0-33); Albumin Level 4.1 g/dL (3.5-5.2); Alkaline Phosphatase 99 U/L (35-105); Anion Gap 13.1 (5-19); Aspartate Amino Transferase 16 U/L (0-32); Blood Urea Nitrogen 22 mg/dL (8-23); Calcium 9.5 mg/dL (8.5-10.5); Carbon Dioxide 27 mmol/L (22-29); Chloride 104 mmol/L (98-107); Globulin 3.1 g/dL (1.3-4.6); Glucose 94 mg/dL (65-115); Iron 53 ug/dL (37-145); Osmolality Calculated 293 mOsm/kg (285-295); Percent Saturation 19.6 % (20-50); Potassium 4.1 mmol/L (3.5-5.1); Sodium 140 mmol/L (136-145); Total Bilirubin 0.4 mg/dL (0.15-1.2); Total Iron Binding Capacity 270 mcg/dl; Total Protein 7.2 g/dL (6.6-8.7); Unsaturated Iron Binding 217 ug/dL (112-347); Vitamin B12 360 pg/mL (232-1245)
== END 2022-09-21 23:59 | disposition home or self-care (01) ==
LOC: ONCMED 11:58
PROVIDERS: PCP Family Medicine; Visit Provider Internal Medicine Medical Oncology
DX: Z08 Encounter for follow-up examination after completed treatment for malignant neoplasm (principal); Z85.3 Personal history of malignant neoplasm of breast; Z90.11 Acquired absence of right breast and nipple; R91.1 Solitary pulmonary nodule
CPT/HCPCS: 36415; 80053; 82607; 83540; 83550; 84443; 85025; 99214

== ENCOUNTER 2022-10-25 06:36 | Outpatient (CLI) | payer MEDICARE, SELFPAY ==
[2022-10-25 06:45] VITALS: BMI 26.9
--- NOTE | 2022-10-25 06:46 | ECG_ITS ---
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 Interpretive Statements NAME OF STUDY: LEXISCAN SESTAMIBI STRESS TEST INDICATION: Pre Operative Clearance PROCEDURE: At the baseline, the blood pressure was 122/53 mm Hg with a heart rate of 56 bpm. The electrocardiogram showed sinus bradycardia, non specific ST changes. Poor anterior R wave progression. ??? The Lexiscan was infused over a period of 20 seconds. A total of 0.4 milligrams of Lexiscan was infused. The stress phase was continued for a total of 5 minutes. Heart rate at the end of the stress phase was 75 bpm with a blood pressure of 108/61 mm Hg. The EKG at the peak infusion revealed no significant ST-T wave changes. ??? Sestamibi was injected 20 seconds after the Lexiscan infusion. ??? Blood pressure at the end of the recovery phase was 117/58 mm Hg with a heart rate of 72 beats per minute. ??? CONCLUSION: 1. No significant EKG changes with the LexiScan infusion. 2. No LexiScan induced chest pain or cardiac arrhythmia. 3. Normal blood pressure and heart rate response. 4. Sestamibi/sestamibi perfusion scan pending; see separate report. Electronically Signed On 10-27-2022 8:48:18 SET UP MACHINIST by Shilpa Ruelas M.D. [id number]
--- NOTE | 2022-10-25 06:47 | NMCV_ITS ---
NM gaston perf SPECT r/s* [id number] Mayela Cavazos Age: 82 Gender: F : 1940 Exam Date: 10/25/2022 07:51 Ordering Phys: Shilpa Ruelas MD ([email or web address]) Technologist: NIMO Tafoya Exam Location: [facility] Indications: CHEST PAIN STRESS TEST Please see separate stress test report in [facility] for full findings IMAGE PROTOCOL Rest/Stress 1 Lexiscan Day Radiopharmaceutical Dose (mCi) Administration Site Administered by Rest: Tc-99m 10.8 IV NIMO Farias Sestamibi Stress:Tc-99m 32.8 IV NIMO Farias Sestamibi Rest: 25-Oct-2022 60 Discovery 630 Stress: 25-Oct-2022 30 Discovery 630 0.4mg Lexiscan. Images obtained in supine and prone position. SPECT RESULTS Technical Quality: Excellent Raw Data Analysis: Normal Image Corrections: No attenuation or motion correction applied Summed Stress Score: 0 Summed Rest Score: 0 Summed Difference Score: 0 PERFUSION FINDINGS SPECT images demonstrate homogeneous tracer distribution throughout the myocardium. FUNCTIONAL RESULTS (calculated via Gated SPECT) Stress Image LV EF (%): 74 Stress EDV (mL):80 TID: 0.96 Stress ESV (mL):21 FUNCTIONAL FINDINGS: The left ventricle is normal in size. Transient Ischemia Dilatation of 0.96. The left ventricular ejection fraction is normal with a value of 74%. There is normal left ventricular wall thickening. Normal end diastolic and end systolic volumes. IMPRESSIONS 1. Myocardial perfusion imaging is normal. 2. Overall left ventricular systolic function is normal without regional wall motion abnormalities, LVEF=74%. 3. EKG portion of the study will be reported separately. 4. Scan indicates low risk for cardiac events. Shilpa Ruelas MD (Electronically Signed) Final Date: 26 October 2022 12:50 S
[2022-10-25] MEDS: aminophylline 25 mg/mL SDV 10 mL IVP (08:20)
[2022-10-25 08:45] VITALS: BP 117/58; PULSE 71
== END 2022-10-25 06:37 | disposition home or self-care (01) ==
PROVIDERS: PCP Family Medicine; Visit Provider Internal Medicine Cardiovascular Disease
DX: Z01.818 Encounter for other preprocedural examination (principal); R07.9 Chest pain, unspecified
CPT/HCPCS: 36415; 78452; 93017; 96374; A9500; J0280

== ENCOUNTER → 2022-11-11 08:54 | Outpatient (BNVA) | payer MEDICARE, SELFPAY | PROVIDERS: PCP Family Medicine; Visit Provider Urology | DX: N30.10 Interstitial cystitis (chronic) without hematuria (principal) | CPT/HCPCS: 81003; 99213 ==

== ENCOUNTER 2022-11-25 15:27 | Outpatient (CLI) | payer MEDICARE, SELFPAY ==
--- NOTE | 2022-11-25 17:04 | MR_ITS ---
WS: [id number] MRI BRAIN WITH HIGH-RESOLUTION IMAGING THROUGH THE INTERNAL AUDITORY CANALS WITHOUT AND WITH CONTRAST HISTORY: LEFT EAR LABYRINTHITIS/TINNITUS LEFT EAR COMPARISON: None available. TECHNIQUE: Multiplanar, multisequence imaging is performed through the brain. Additional 3 mm imaging performed in multiple planes through the internal auditory canal. Postcontrast imaging with 16 ml's of MultiHance. No acute intracranial hemorrhage, midline shift, edema or mass effect. Numerous T2 and FLAIR signal hyperintensities throughout the white matter beginning at the vertex. Sommers bcortical and periventricular distribution of white matter disease is bilaterally. No prior large ter ritory infarct. Mildly prominent ventricles and extra-axial spaces on the basis of atrophy. No inferior displacement of cerebellar tonsils. Clivus and pituitary gland are normal. Internal and external auditory canals: Unremarkable. Cranial nerves VII and VIII complexes: Unremarkable. No enhancement or mass. Cerebellopontine angles: Normal. Paranasal sinuses: Normal. Mastoid air cells: Normal. Calvarium and scalp: Normal. Visualized [place] and dural venous sinuses demonstrate no abnormality. MR/MR iac's wo/w con* [id number] IMPRESSION: 1. No acute infarct or enhancing mass. 2. Moderate small vessel ischemic disease in the supratentorial white matter. No hemorrhage. 3. Mild atrophy. 4. No enhancing masses or signal abnormality along the internal auditory canal s.
[2022-11-25] MEDS: gadobenate dimeglumine 20 mL vial IV (17:56)
== END 2022-11-25 15:28 | disposition home or self-care (01) ==
LOC: RAD 15:27
PROVIDERS: PCP Family Medicine; Visit Provider Otolaryngology
DX: H83.02 Labyrinthitis, left ear (principal); H91.22 Sudden idiopathic hearing loss, left ear; H93.12 Tinnitus, left ear
CPT/HCPCS: 70553; A9577

== ENCOUNTER 2023-01-09 10:56 | Outpatient (CLI) | payer MEDICARE, SELFPAY ==
--- NOTE | 2023-01-09 11:04 | MM_ITS ---
WS: [id number] Left breast diagnostic 3D tomosynthesis digital mammogram, 01/09/2023 Clinical Data: HX OFBR CA Comparison: 01/05/2022, 09/16/2020, 08/22/2019, 08/20/2018. Findings: There is a spiculated density in the upper outer quadrant of the left breast in the 2:00 position anson suring approximately 1.2 cm. There are no calcifications associated with this density. This density w as not present on the prior examination. The remainder of the left breast shows no abnormalities. The breast parenchymal pattern is fibroglandular tissue. There are no secondary signs of carcinoma. MM/[place] [id number] Impression: 1. Density in the upper outer quadrant of the left breast at approximately the 2:00 position. 2. Recommend compression views in the CC and ML projection along with a localiz ed ultrasound. BIRADS: 0-Incomplete: Need additional imaging evaluation FOLLOW UP: See Report The CAD mechanical and auto body car checker was used.
== END 2023-01-09 10:57 | disposition home or self-care (01) ==
LOC: RAD 10:59
PROVIDERS: PCP Family Medicine; Visit Provider Internal Medicine Medical Oncology
DX: Z85.3 Personal history of malignant neoplasm of breast (principal); N63.21 Unspecified lump in the left breast, upper outer quadrant
CPT/HCPCS: 77061; G0279

== ENCOUNTER 2023-01-26 11:46 | Outpatient (CLI) | payer MEDICARE, SELFPAY ==
--- NOTE | 2023-01-26 12:58 | MM_ITS ---
WS: [id number] LEFT 3D TOMOSYNTHESIS DIGITAL MAMMOGRAPHY WITH CAD CLINICAL INFORMATION: abnormal mammogram HISTORY: Palpable nodule LEFT breast. History of breast cancer. COMPARISON: January 09, 2023 TECHNIQUE: 3 views of the left breast were obtained. FINDINGS: Scattered fibroglandular densities of the left breast. Again seen is the irregular spiculated lesion in the area of palpable concern upper outer LEFT breast measuring approximately 1.2 cm. This persists on spot compression views. Surrounding parenchymal distortion. Ultrasound described below. ULTRASOUND BREAST LEFT TECHNIQUE: Ultrasound left breast focused area of concern. CLINICAL INFORMATION: abnormal mammogram FINDINGS: Ultrasound LEFT breast 2:00 position 4 cm nipple. There is a solid 1.0 x 0.9 x 3.5 cm hypoechoic irre gular nodule at the 2:00 position 4 cm from the nipple. A few associated calcifications. Lesion has a suspicious appearance and recommend further evaluation with ultrasound-guided biopsy. MM/[place] [id number] IMPRESSION: BI-RADS: 4-Suspicious Finding-Biopsy Should Be Considered FOLLOW UP: US Guided Biopsy Recommended Recommend return to annual screening mammography.
== END 2023-01-26 11:47 | disposition home or self-care (01) ==
LOC: RAD 11:47
PROVIDERS: PCP Family Medicine; Visit Provider Internal Medicine Medical Oncology
DX: R92.8 Other abnormal and inconclusive findings on diagnostic imaging of breast (principal); Z85.3 Personal history of malignant neoplasm of breast; N63.21 Unspecified lump in the left breast, upper outer quadrant
CPT/HCPCS: 76642; 77061; G0279

== ENCOUNTER 2023-02-22 11:07 | Outpatient (CLI) | payer MEDICARE, SELFPAY ==
--- NOTE | 2023-02-22 11:14 | US_ITS ---
WS: [id number] ULTRASOUND-GUIDED LEFT BREAST BIOPSY CLINICAL INFORMATION: ABNORMAL MAMMO COMPARISON: Ultrasound January 26, 2023 FINDINGS: The procedure including risks, benefits, and complications were discussed with the patient who agreed to proceed. Using sterile technique patient was prepped and draped in the usual sterile fashion. Aft er 1% lidocaine utilizing real-time ultrasound guidance 5 14-gauge cores were obtained of the LEFT br east lesion at the 2 o'clock position 4 cm from the nipple. Subsequently a titanium clip was placed i n the biopsy cavity. No immediate complications. Pathology demonstrates A. Breast, left, 2 o'clock, 4 cm from nipple, ultrasound-guided biopsy: - Invasive ductal carcinoma, moderately differentiated. - Wall Garrison grade 2 (score 7). - Breast prognostic profile has been performed and will be reported separately. US/[place] [id number] IMPRESSION: 1. Uncomplicated ultrasound-guided LEFT breast biopsy. 2. 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 3. Recommend Breast surgery consultation. BI-RADS: 6-Known Biopsy-Proven Malignancy FOLLOW UP: Surgical Biopsy Recommended
[2023-02-27 11:13] LABS: Breast Profile ER,PR,HER2,Ki-6 See Report
== END 2023-02-22 11:08 | disposition home or self-care (01) ==
LOC: RAD 11:09
PROVIDERS: PCP Family Medicine; Visit Provider Internal Medicine Medical Oncology
DX: R92.8 Other abnormal and inconclusive findings on diagnostic imaging of breast (principal); C50.412 Malignant neoplasm of upper-outer quadrant of left female breast
CPT/HCPCS: 19083; 88305; 88361; 88374

== ENCOUNTER 2023-03-01 11:24 | Oncology outpatient (recurring) (ONCR) | payer MEDICARE, SELFPAY | END 2023-03-22 23:59 | disposition home or self-care (01) | LOC: ONCMED 11:25 | PROVIDERS: PCP Family Medicine; Visit Provider Internal Medicine Medical Oncology | DX: C50.812 Malignant neoplasm of overlapping sites of left female breast (principal); Z17.0 Estrogen receptor positive status [ER+]; Z85.3 Personal history of malignant neoplasm of breast; Z90.11 Acquired absence of right breast and nipple | CPT/HCPCS: 99215 ==

== ENCOUNTER → 2023-04-18 14:22 | Outpatient (BNVA) | payer MEDICARE, SELFPAY | PROVIDERS: PCP Family Medicine; Visit Provider Internal Medicine Cardiovascular Disease | DX: I48.19 Other persistent atrial fibrillation (principal); I10 Essential (primary) hypertension; R00.1 Bradycardia, unspecified; C50.412 Malignant neoplasm of upper-outer quadrant of left female breast; Z17.0 Estrogen receptor positive status [ER+]; Z90.11 Acquired absence of right breast and nipple; Z79.811 Long term (current) use of aromatase inhibitors | CPT/HCPCS: 99214 ==

== ENCOUNTER 2023-07-20 12:07 | Oncology outpatient (recurring) (ONCR) | payer MEDICARE, SELFPAY ==
[2023-07-20 13:05] VITALS: BP 123/67; PULSE 66; RESP 16; TEMP 36.9; O2SAT 99
[2023-07-20 13:12] LABS: Basophils % 0.5 %; Eosinophils # 0.2 10^3/uL (0.0-0.8); Hematocrit 38.5 % (36-47); Lymphocytes # 1.5 10^3/uL (0.8-4.8); Lymphocytes % 24.8 %; Mean Corpuscular HGB Conc 31.4 g/dL (30-55); Mean Corpuscular Hemoglobin 28.7 pg (27-33); Mean Corpuscular Volume 91.4 fl (85-98); Mean Platelet Volume 11.1 fL (7.4-10.4); Monocytes # 0.5 10^3/uL (0.2-0.9); Monocytes % 7.7 %; Neutrophils # 3.74 10^3/uL (1.8-7.7); Neutrophils % 62.7 %; Nucleated Red Blood Cells % 0 %; Platelet Count 235 10^3/cmm (157-399); Red Blood Count 4.21 10^6/uL (3.85-5.65); Red Cell Distribution Width 15.3 % (12.1-15.1); White Blood Count 5.97 10^3/uL (3.29-11.43)
[2023-07-20 13:40] LABS: Alanine Aminotransferase 10 U/L (0-33); Albumin Level 4.2 g/dL (3.5-5.2); Alkaline Phosphatase 103 U/L (35-105); Anion Gap 12.7 (5-19); Aspartate Amino Transferase 18 U/L (0-32); Blood Urea Nitrogen 24 mg/dL (8-23); Calcium 9.3 mg/dL (8.5-10.5); Carbon Dioxide 28 mmol/L (22-29); Chloride 104 mmol/L (98-107); Globulin 2.6 g/dL (1.3-4.6); Glucose 117 mg/dL (65-115); Osmolality Calculated 295 mOsm/kg (285-295); Potassium 4.7 mmol/L (3.5-5.1); Sodium 140 mmol/L (136-145); Total Bilirubin 0.3 mg/dL (0.15-1.2); Total Protein 6.8 g/dL (6.6-8.7)
== END 2023-07-22 23:59 | disposition home or self-care (01) ==
PROVIDERS: Nurse Practitioner Family; PCP Family Medicine; Visit Provider Internal Medicine Medical Oncology
DX: C50.412 Malignant neoplasm of upper-outer quadrant of left female breast (principal); D64.9 Anemia, unspecified; Z90.11 Acquired absence of right breast and nipple; R91.1 Solitary pulmonary nodule; Z17.0 Estrogen receptor positive status [ER+]; Z79.899 Other long term (current) drug therapy
CPT/HCPCS: 36415; 80053; 85025; 99214

== ENCOUNTER → 2023-09-22 10:13 | Outpatient (BNVA) | payer MEDICARE, SELFPAY | PROVIDERS: PCP Family Medicine; Visit Provider Internal Medicine Cardiovascular Disease | DX: R00.1 Bradycardia, unspecified (principal); I48.19 Other persistent atrial fibrillation; I10 Essential (primary) hypertension; I65.29 Occlusion and stenosis of unspecified carotid artery; Z79.01 Long term (current) use of anticoagulants | CPT/HCPCS: 99214 ==

== ENCOUNTER 2024-01-18 10:21 | Oncology outpatient (recurring) (ONCR) | payer MEDICARE, SELFPAY ==
[2024-01-18 10:56] LABS: Basophils % 0.3 %; Eosinophils # 0.3 10^3/uL (0.0-0.8); Eosinophils % 4.2 %; Hematocrit 37.1 % (36-47); Lymphocytes # 1.5 10^3/uL (0.8-4.8); Lymphocytes % 21.1 %; Mean Corpuscular HGB Conc 31.8 g/dL (30-55); Mean Corpuscular Hemoglobin 29.2 pg (27-33); Mean Corpuscular Volume 91.8 fl (85-98); Mean Platelet Volume 10.5 fL (7.4-10.4); Monocytes # 0.5 10^3/uL (0.2-0.9); Neutrophils # 4.67 10^3/uL (1.8-7.7); Neutrophils % 67.1 %; Nucleated Red Blood Cells % 0 %; Platelet Count 253 10^3/cmm (157-399); Red Blood Count 4.04 10^6/uL (3.85-5.65); Red Cell Distribution Width 13.4 % (12.1-15.1); White Blood Count 6.96 10^3/uL (3.29-11.43)
[2024-01-18 11:19] LABS: Alanine Aminotransferase 12 U/L (0-33); Alkaline Phosphatase 107 U/L (35-105); Anion Gap 13.8 (5-19); Aspartate Amino Transferase 16 U/L (0-32); Blood Urea Nitrogen 22 mg/dL (8-23); Calcium 9.5 mg/dL (8.5-10.5); Carbon Dioxide 28 mmol/L (22-29); Chloride 104 mmol/L (98-107); Globulin 2.5 g/dL (1.3-4.6); Glucose 103 mg/dL (65-115); Osmolality Calculated 296 mOsm/kg (285-295); Potassium 4.8 mmol/L (3.5-5.1); Sodium 141 mmol/L (136-145); Total Bilirubin 0.3 mg/dL (0.15-1.2); Total Protein 6.5 g/dL (6.6-8.7)
== END 2024-01-21 23:59 | disposition home or self-care (01) ==
PROVIDERS: Nurse Practitioner Family; PCP Family Medicine; Visit Provider Internal Medicine Medical Oncology
DX: Z08 Encounter for follow-up examination after completed treatment for malignant neoplasm (principal); Z85.3 Personal history of malignant neoplasm of breast; Z90.11 Acquired absence of right breast and nipple; R91.1 Solitary pulmonary nodule
CPT/HCPCS: 36415; 80053; 85025; 99214

== ENCOUNTER → 2024-03-06 09:11 | Outpatient (BNVA) | payer MEDICARE, SELFPAY | PROVIDERS: PCP Family Medicine; Visit Provider Nurse Practitioner Family | DX: I48.19 Other persistent atrial fibrillation (principal); I10 Essential (primary) hypertension; Z79.01 Long term (current) use of anticoagulants | CPT/HCPCS: 99214 ==